=== PATIENT | male | born 1950 | race African-American/Black ===

== ENCOUNTER → 2016-12-11 | Day surgery (SDC) | payer OTHER ==
[~2016-12-11] MED LIST: BLOOD PRESSURE
--- NOTE | ~2016-12-11 | OR ---
Unit #: [id number] #: [id number] Patient: MABEL DUNN [id number] [place], [place] [address] [id number] O MR#: [id number] NAME: MABEL DUNN ROOM: Date of Procedure: 12/11/2016 Admission Date: 12/11/2016 Surgeon: Craig Lopez M.D. : 1950 Attending Physician: Craig Lopez M.D. Primary Care Physician: Amadou Dewitt M.D. OPERATIVE REPORT PROCEDURE PERFORMED Colonoscopy to cecum. INDICATIONS FOR PROCEDURE Average risk for colorectal cancer. MEDICATIONS Monitored anesthesia. POSTOPERATIVE FINDINGS 1. Mild diverticulosis. 2. Good prep. 3. No polyps, masses, or colitis were seen. PLAN Follow up on high-fiber diet. Repeat colonoscopy in 10 years. DESCRIPTION OF PROCEDURE The patient was explained of the procedure, risks, and benefits along with risks and benefits of anesthesia. He was brought to the endoscopy room. Propofol anesthesia was given. Rectal exam was done, which was normal. Colonoscope was lubricated, passed up the rectum, advanced under direct vision all the way to the cecum. Cecum was identified by ileocecal valve and appendiceal orifice. I then started to pull the scope out carefully looking. No polyps, masses, or colitis were seen. Mucosa was normal and healthy. I retroflexed in the rectum, small hemorrhoids seen. Scope was gently pulled out. He tolerated it well. Dictated by... Amparo White/carola TD: 12/11/2016 23:30 JOB #: [id number] Unit #: [id number] #: [id number] Patient: MABEL DUNN OPERATIVE REPORT Page 1 of 1 X Craig Lopez MD X PROCEDURE OPERATIVE NOTE
== END | disposition home or self-care (01) ==
LOC: COPS 08:13
DX: Z12.11 Encounter for screening for malignant neoplasm of colon (principal); K57.30 Diverticulosis of large intestine without perforation or abscess without bleeding; K64.9 Unspecified hemorrhoids; I10 Essential (primary) hypertension; F17.210 Nicotine dependence, cigarettes, uncomplicated